=== PATIENT | male | born 1990 | race Caucasian/White ===

== ENCOUNTER 2017-10-15 09:24 | Emergency (ER) | payer OTHER, SELFPAY ==
[2017-10-15 09:25] VITALS: BP 125/66; PULSE 95; RESP 17; TEMP 36.8; O2SAT 97; BMI 17.2
--- NOTE | 2017-10-15 09:35 | RAD_ITS ---
STUDY: X-RAY - LEFT FOOT CLINICAL: Male, 27 years old. Pain following injury. TECHNIQUE: 3 view(s) of the foot. COMPARISON: None. FINDINGS: Normal talus, calcaneus, and tarsal bones. Normal visualized subtalar, talonavicular, calcaneocuboid, tarsal and tarsometatarsal articulations. Slightly displaced oblique fracture of the distal aspect of the fifth metatarsal. Normal metatarsophalangeal joint of the great toe. Normal tibial and fibular sesamoid bones. Normal interphalangeal joint of the great toe. Normal phalanges of the great toe. Normal second through fifth metatarsophalangeal joints. Normal interphalangeal joints and phalanges of the lesser toes. Soft tissue swelling. RAD/Foot min 3 Views IMPRESSION: Mildly displaced oblique fracture of the distal aspect of the fifth metatarsal with overlying soft tissue swelling. Electronically Signed: Federico Carey MD at 9:54 EDT Tel [phone], Service support ,
[2017-10-15] MEDS: Ibuprofen 600 MG Tablet PO (10:00)
--- NOTE | 2017-10-15 10:15 | ED.VISSUMM ---
- ER Visit Summary Date of Service: 10/15/17 Chief Complaint: [Left foot injury] History of Present Illness: The patient is a 27 M [presents the emergency department after sustaining a left foot injury this morning about an hour ago. Patient states that he was coming down the steps when he fell down for 5 steps injuring his left foot. Patient unable to bear weight. He denies any other injuries.] Physical Examination: [HEENT-PERRLA, EOMI. Cranial nerves II through XII grossly intact. TMs clear. Mucous membranes moist. No adenopathy. Cardiovascular-regular rate and rhythm without murmur or ectopy Lungs-clear to auscultation, chest wall stable without crepitus or subcu emphysema Abdomen-normoactive bowel sounds, soft, nontender, no rebound or rigidity, no peritoneal signs. Extremities-intact ?4, normal range of motion, normal pulses. Left foot-patient has some mild ecchymosis and soft tissue swelling over the lateral aspect of the foot. Patient has tenderness over the fifth metatarsal diffusely. No pain at the ankle. Neurovascular intact. Test Results: [X-rays of the left foot obtained showed a fracture of the fifth metatarsal distal third that is oblique.] Emergency Department Course and Treatment: [Patient was given ibuprofen in the emergency department and placed in a walking boot and given crutches] Treatment Plan: [Patient will be given a prescription for 10 Percocet for home and advised to follow-up with Dr. Robert.] Disposition: [Discharged home in stable condition. Patient advised to ice and elevate extremity.] Impression: [Left foot fracture] This note was generated with [employer] dictation software. It may contain incorrect words, spelling, and punctuation that were not noted in review of the chart prior to signing ED Disposition - Plan for ED Patient: Chief Complaint: Lower Extremity Injury Referrals: Wayne Bartlett MD [Primary Care Provider] -
--- NOTE | 2017-10-15 10:18 | ED.DEP ---
ED Disposition - Plan for ED Patient: Chief Complaint: Lower Extremity Injury Instructions: ED Fx Foot Prescriptions: Oxycodone HCl/Acetaminophen [Percocet 5/325] 1 tab PO Q6H PRN PRN 3 Days #10 tab PRN Reason: Pain Referrals: Wanye Bartlett MD [Primary Care Provider] - Paul Robert DPM [STAFF PHYSICIAN] - 3-5 Days
== END 2017-10-15 10:53 | disposition home or self-care (01) ==
PROVIDERS: Emergency Provider Emergency Medicine; Family Provider Family Medicine; PCP Family Medicine
DX: S92.352A Displaced fracture of fifth metatarsal bone, left foot, initial encounter for closed fracture (principal); W10.9XXA Fall (on) (from) unspecified stairs and steps, initial encounter; Y93.01 Activity, walking, marching and hiking; Y92.009 Unspecified place in unspecified non-institutional (private) residence as the place of occurrence of the external cause
CPT/HCPCS: 73630; 99284

== ENCOUNTER → 2017-10-16 12:47 | Outpatient (CLI) | payer OTHER, SELFPAY ==
[2017-10-16 13:58] LABS: Hematocrit 44.8 % (40-54); Hemoglobin 14.6 g/dl (13.0-16.5); Mean Corp Hgb Conc 32.6 g/gl (32-36); Mean Corpuscular Hgb 29.1 pg (27.0-32.0); Mean Corpuscular Volume 89.2 fL (80-94); Platelet Count 223 K/mm3 (150-450); RBC Distribution Width CV 13.2 % (11.6-14.6); RBC Distribution Width SD 42.6 fl (35.1-43.9); Red Blood Count 5.02 M/mm3 (4.6-6.2); White Blood Count 7.6 K/mm3 (4.4-11.0)
[2017-10-16 14:08] LABS: International Normalized Ratio 1.1; Partial Thromboplast Time 28.1 Seconds (24.1-36.2); Prothrombin Time (Protime)PT. 14.3 SECONDS (11.7-14.9)
[2017-10-16 14:09] LABS: AST(SGOT) 18 U/L (15-37); Alanine Aminotransfer ALT/SGPT 29 U/L (16-61); Albumin, Serum 4.2 g/dL (3.2-5.0); Alkaline Phosphatase 79 U/L (45-117); Anion Gap 9 (5-15); BUN 17 mg/dL (7-18); BUN/Creat Ratio 17.1 RATIO (10-20); Calcium,Total 9.3 mg/dL (8.5-10.1); Chloride 103 mmol/L (98-107); EST Glomerular Filtration Rate 96 mL/min (>60); Est Glom Filt Rate - Afr Amer 116 mL/min (>60); Globulin 4.2 g/dL (2.2-4.2); Glucose 63 mg/dL (74-106); Potassium 4.2 mmol/L (3.5-5.1); Protein, Total 8.4 g/dL (6.4-8.2); Sodium Level 142 mmol/L (136-145)
[2017-10-16 14:13] LABS: Scan Indicated on CBC? Y/N NO
== END ==
LOC: MTLAB 12:49
PROVIDERS: Family Provider Family Medicine; PCP Family Medicine; Visit Provider Family Medicine
DX: Z01.818 Encounter for other preprocedural examination (principal)
CPT/HCPCS: 36415; 80053; 85027; 85610; 85730

== ENCOUNTER 2017-10-19 11:34 | Day surgery (SDC) | payer OTHER, SELFPAY ==
[2017-10-19] VITALS (9 sets, daily range): BP systolic 92–125; BP diastolic 53–88; PULSE 47–68; RESP 16; TEMP 36.2–36.9; O2SAT 96–100; BMI 17.9
[2017-10-19 12:43] LABS: Absolute Lymphocyte Count 1.26 X10^3/ul (0.83-4.51); Absolute Neutrophil Count 3.6 X10^3/uL (2.0-7.7); Basophil# 0.01 X10^3/uL; Basophil% 0.2 % (0-1); Eosinophil# 0.09 X10^3/uL; Eosinophils% 1.6 % (0-5); Hematocrit 40.8 % (40-54); Hemoglobin 13.6 g/dl (13.0-16.5); Lymphocyte # 1.26 X10^3/ul (4.0); Lymphocyte % 22.5 % (19-41); Mean Corp Hgb Conc 33.3 g/gl (32-36); Mean Corpuscular Hgb 29.2 pg (27.0-32.0); Mean Corpuscular Volume 87.7 fL (80-94); Mean Platelet Vol. 11.6 fl (6.2-12.0); Monocyte# 0.63 X10^3/uL; Monocyte% 11.2 % (0-10); Neutrophil # 3.62 X10^3/uL (2.7-7.7); Neutrophil % 64.5 % (47-70); Platelet Count 178 K/mm3 (150-450); RBC Distribution Width CV 12.8 % (11.6-14.6); RBC Distribution Width SD 41.2 fl (35.1-43.9); Red Blood Count 4.65 M/mm3 (4.6-6.2); White Blood Count 5.6 K/mm3 (4.4-11.0)
[2017-10-19 12:53] LABS: POSITIVE COUNT NO; POSITIVE DIFFERENTIAL NO; POSITIVE MORPHOLOGY NO
[2017-10-19 13:42] LABS: Vitamin D,25 Hydroxy 29.2 ng/mL (29.95-100.01)
--- NOTE | 2017-10-19 15:00 | RAD_ITS ---
STUDY: X-RAY - LEFT FOOT CLINICAL: Male, 27 years old. Intraoperative control of procedure. Open reduction and internal fixation of fracture of the fifth metatarsal. TECHNIQUE: 5 fluoroscopic view(s) of the foot with 27.3 seconds of fluoroscopy time. COMPARISON: Prior left foot films of October 15, 2017 FINDINGS: Fluoroscopic imaging demonstrates anatomic realignment of the comminuted diaphyseal fracture of the fifth metatarsal with one orthopedic pin and plate and screw hardware. At the completion of the procedure the fifth metatarsal fracture is in anatomic alignment. RAD/Foot min 3 Views IMPRESSION: Anatomic reduction and alignment of the fifth metatarsal fracture with orthopedic pin and plate and screw hardware. Electronically Signed: Donna Copeland MD at 16:32 EDT , Service support ,
[2017-10-19] MEDS: Bupivacaine 0.25% 30 ML Vial (15:50)
--- NOTE | 2017-10-19 16:02 | RAD_ITS ---
STUDY: X-RAY - LEFT FOOT CLINICAL: Male, 27 years old. Post operative evaluation of open reduction and internal fixation of fifth metatarsal fracture. TECHNIQUE: 3 view(s) of the foot. COMPARISON: Prior intraoperative radiographs of October 19, 2017. FINDINGS: Normal talus, calcaneus, and tarsal bones. Normal visualized subtalar, talonavicular, calcaneocuboid, tarsal and tarsometatarsal articulations. Anatomic alignment of the diaphyseal fracture of the fifth metatarsal with one orthopedic pin and the lateral plate and screw hardware. Normal first through the fourth metatarsals. Normal metatarsophalangeal joint of the great toe. Normal tibial and fibular sesamoid bones. Normal interphalangeal joint of the great toe. Normal phalanges of the great toe. Normal second through fifth metatarsophalangeal joints. Normal interphalangeal joints and phalanges of the lesser toes. Normal postoperative soft tissue changes. The foot is stabilized in a neutral position with a dorsal plantar fiberglass splint. RAD/Foot min 3 Views IMPRESSION: Anatomic alignment of the diaphyseal fracture of the fifth metatarsal with orthopedic pin and plate and screw hardware. Foot stabilized in a neutral position and placed in a dorsal/plantar fiberglass splint. Electronically Signed: Donna Copeland MD at 16:34 EDT , Service support ,
--- NOTE | 2017-10-19 16:07 | DCINST_ITS ---
Discharge Diet: No Restrictions Discharge Activity: Use Crutches, - - use splint Weight Bearing Status: No weight bearing Keep extremity elevated above heart level: Left Leg Call your doctor if your incision/area has: Continuous Slow Oozing, Sudden Increased Bleeding, Increased Pain/ Swelling, Increased Redness, Foul Smelling Discharge, Swelling at the incision site Call your doctor if you observe: Fever of 101 or Higher, Coldness, Increased Pain, Numbness or Tingling, Change in Color, Calf discomfort, Uncontrolled pain Cleanse incision/area with: Keep Dressing Clean & Dry Allergies/Adverse Reactions: Allergies amoxicillin Allergy (Verified 10/19/17 12:01) Unknown Medications to take at Discharge Oxycodone HCl/Acetaminophen [Percocet 5/325] 1 tab PO Q6H PRN PRN 3 Days #10 tab 10/15/17 Acetaminophen [Tylenol Extra Strength] 500 mg PO Q4H PRN PRN 10/17/17 Hydrocodone/Acetaminophen [Hydrocodon-Acetaminophen 5-325] 1 - 2 tab PO Q6H PRN PRN #30 tab 10/19/17 The following prescriptions were given: Hydrocodone/Acetaminophen [Hydrocodon-Acetaminophen 5-325] 1 - 2 tab PO Q6H PRN PRN #30 tab PRN Reason: Pain Primary Care Physician: Wayne Bartlett MD [Primary Care Provider] - Test Results: Test results from this visit will be discussed in further detail at your follow- up appointment, if applicable. Please Follow Up With: Sachi Elise DPM When: 1 week at [facility]; [phone] Proposed Discharge Date: 10/19/17
--- NOTE | 2017-10-19 16:19 | OP.PN_ITS ---
Problem List (1) Displaced fracture of fifth metatarsal bone, left foot, subsequent encounter for fracture with delayed healing Status: Acute (2) Left foot pain Status: Acute Immediate Post-Op Note Date of Procedure: 10/19/17 - surgeon: Sachi Elise DPM [facility] Nurse: Tim Diallo PGY2 Primary Surgeon/Physician: Sachi lEise DPM window/distribution clerk: none Pre-Operative Diagnosis: fifth metatarsal fracture left foot Post-Operative Diagnosis: fifth metatarsal fracture left foot Surgery/Procedure Performed:: open reduction internal fixation of left fifth metatarsal fracture Description of Surgical Findings:: hemostasis controlled solid fracture reduction maintained see detailed operative report The patient tolerated the procedure and anesthesia well. He was transported to the PACU with vitals stable and vascular status intact to the left lower extremity. Post operative orders were entered electronically. He will be discharged home today. Estimated Blood Loss: <50 mL Specimen's removed: none Type of Anesthesia:: Local MAC - preoperative injection: 10 cc 0.25% marcaine plain post operative injection: 10 cc of 1:1 mix of 0.25 % marcaine plain and 1 % lidocaine plain - Admit VTE Documentation VTE Present on Admission: No VTE Mechan Device Prophylaxis: SCD's VTE Pharm Prophylaxis ordered?: No Reason prophylaxis not ordered:: Refusal of Tx by Patient, Treatment Not Indicated
--- NOTE | 2017-10-19 16:45 | PCM.OPRPT ---
Problem List (1) Displaced fracture of fifth metatarsal bone, left foot, subsequent encounter for fracture with delayed healing Status: Acute (2) Left foot pain Status: Acute Report of Operation Date of Procedure: 10/19/17 - surgeon: Sachi Elise DPM Md Allergy Immunology: Tim Diallo PGY2 Pre-Operative Diagnosis: fifth metatarsal fracture left foot Post-Operative Diagnosis: fifth metatarsal fracture left foot Surgery/Procedure Performed:: open reduction internal fixation of left fifth metatarsal fracture Description of Surgical Findings:: hemostasis: well padded pneumatic ankle tourniquet left, 250 mmHg materials: one 0.45 k wire, one arthrex low profile T- plate (6 hole), two 12 mm and one 10 mm 2.4 mm variable angle titanium locking screws, one 12 mm and one 14 mm cortical 2.4 mm low profile titanium screw, demineralized bone matrix (~ 1/2 cc) complications: none pointer machine operator: none Type of Anesthesia:: Local MAC - preoperative injection: 10 cc 0.25% marcaine plain post operative injection: 10 cc of 1:1 mix of 0.25 % marcaine plain and 1% lidocaine plain Specimen's removed: none Estimated Blood Loss (mL): <50 mL Description of Procedure: Indications: This 27-year-old male with no significant past medical history fell down four stairs on October 15, 2017 in which she sustained a displaced fifth metatarsal fracture of the left foot. He has pain, swelling, and bruising. He was referred by the emergency room without other loss of consciousness or other injuries. His x-rays were reviewed with a comminuted distal diaphysis spiral oblique fracture of the left fifth metatarsal with shortening and displacement of over 50% in the transverse plane. He is very active at home and at work. Clinically has pain on palpation of the fracture site and no other suspected injuries. His neurovascular status is intact. The preoperative indications, planned procedure, possible benefits, risks, consultations, and anticipated healing time and management were discussed in detail the patient. He understands and elects to proceed with surgery at this time. He understands complications and risks include but are not limited to the following: Infection, scarring, pain, swelling, complex regional pain syndrome, blood clot, loss of limb, function, life, hardware failure, over or under correction, need for revisional surgery, delayed or nonhealing of the skin or bone. The informed surgical consent and the limb were signed. I answered all his questions to his satisfaction. He was cleared medically by his primary care physician and I reviewed his preoperative diagnostic labs including CBC, CMP, and coagulation studies. Procedure in detail: The patient was transferred to the operating room via cart and placed on the operating table. Final verification the patient, surgery, limb designation was performed via the timeout procedure. A well-padded pneumatic left ankle tourniquet was placed. The preoperative injection was administered via the podiatry team. Preoperative IV clindamycin was administered and MAC anesthesia was initiated by the anesthesia team. The left lower extremity was prepped and draped in the usual aseptic manner. An Esmarch bandage was used to exsanguinate the left lower extremity and the tourniquet was inflated at this time. Attention was first directed to the dorsal lateral aspect of the left foot in which a 4 cm linear incision was made through the skin over the distal diaphyseal fracture site. Care was taken to identify, protect, and retract all neurovascular structures at this point and throughout the remainder of the surgery. Blunt dissection was performed down to the capsular layer in which a gentle linear incision was made. The fracture hematoma was immediately identified. This fracture hematoma was irrigated with saline and mobilized and gently brought out to length. It is noted this is severely comminuted and the bone is soft in this area. Periosteal invagination was reflected from the fracture site to allow fracture reapproximation, and care was taken to keep the periosteum intact to the remainder of this bone. A low-profile Arthrex T plate was secured to the fifth metatarsal head and this was used to pull this fragment out to length and rotated back into an anatomic position. The proximal part of the plate was next temporarily fixated and proper placement and reduction of the fracture was confirmed with intraoperative fluoroscopy. Next, cortical locking and nonlocking screws were applied to the plate to secure it as one solid unit. An additional K wire was used to reapproximate the butterfly loose fragment on the medial aspect of the fifth metatarsal diaphysis to prevent rotation and movement. This was applied perpendicular to the fracture line. Demineralized bone matrix was applied to this comminuted site. Intraoperative x-rays were taken in multiple views to confirm appropriate fracture reduction and placement of the plate and screws. The desired trajectory and length of screws and retraction was confirmed. Saline irrigation was performed. Deep tissue was reapproximated with 2-0 Vicryl. The tourniquet was deflated at this time and brisk capillary refill time was noted to all digits of the left foot. There is no pulsatile bleeding. Pressure was applied a minimal electrocauterization was used to maintain hemostasis. Subcutaneous closure was achieved with minimal Vicryl and the skin was reapproximated with 4-0 nylon utilizing horizontal mattress technique. The postoperative injection was administered. A dressing consisting of Betadine soaked Adaptic, gauze, Kerlix and Dalton wrap was applied. Additionally, a well-padded posterior mold was applied with the foot and ankle in a rectus position. After procedure: The patient tolerated the procedure and anesthesia well. He was transported to the PACU vital signs stable and vascular status intact to left lower extremity. He was advised to ice and elevate for pain and inflammation management. Formal postoperative x-rays were ordered in the PACU. He was advised to continue with strict nonweightbearing with crutches for assistance with the splint in place to the left lower extremity. A postoperative pain medicine prescription was provided and he was advised on safe and proper use of [place] only if needed for pain. He was advised to keep his dressing and splint clean, dry, and intact until [facility] Elise. He was advised to call sooner if he has any questions or concerns. I also recommend he take vitamin D supplementation due to his lower level to optimize bone healing. All of his postoperative orders were entered electronically and he will be discharged home today.
--- NOTE | 2017-10-19 16:48 | OP.PCM_ITS ---
Problem List (1) Displaced fracture of fifth metatarsal bone, left foot, subsequent encounter for fracture with delayed healing Status: Acute (2) Left foot pain Status: Acute Report of Operation Date of Procedure: 10/19/17 - surgeon: Sachi Elise DPM Head Field Hockey Coach: Tim Diallo PGY2 Pre-Operative Diagnosis: fifth metatarsal fracture left foot Post-Operative Diagnosis: fifth metatarsal fracture left foot Surgery/Procedure Performed:: open reduction internal fixation of left fifth metatarsal fracture Description of Surgical Findings:: hemostasis: well padded pneumatic ankle tourniquet left, 250 mmHg materials: one 0.45 k wire, one arthrex low profile T- plate (6 hole), two 12 mm and one 10 mm 2.4 mm variable angle titanium locking screws, one 12 mm and one 14 mm cortical 2.4 mm low profile titanium screw, demineralized bone matrix (~ 1/2 cc) complications: none assistant speech language pathologist: none Type of Anesthesia:: Local MAC - preoperative injection: 10 cc 0.25% marcaine plain post operative injection: 10 cc of 1:1 mix of 0.25 % marcaine plain and 1 % lidocaine plain Specimen's removed: none Estimated Blood Loss (mL): <50 mL Description of Procedure: Indications: This 27-year-old male with no significant past medical history fell down four stairs on October 15, 2017 in which she sustained a displaced fifth metatarsal fracture of the left foot. He has pain, swelling, and bruising. He was referred by the emergency room without other loss of consciousness or other injuries. His x-rays were reviewed with a comminuted distal diaphysis spiral oblique fracture of the left fifth metatarsal with shortening and displacement of over 50% in the transverse plane. He is very active at home and at work. Clinically has pain on palpation of the fracture site and no other suspected injuries. His neurovascular status is intact. The preoperative indications, planned procedure, possible benefits, risks, consultations, and anticipated healing time and management were discussed in detail the patient. He understands and elects to proceed with surgery at this time. He understands complications and risks include but are not limited to the following: Infection , scarring, pain, swelling, complex regional pain syndrome, blood clot, loss of limb, function, life, hardware failure, over or under correction, need for revisional surgery, delayed or nonhealing of the skin or bone. The informed surgical consent and the limb were signed. I answered all his questions to his satisfaction. He was cleared medically by his primary care physician and I reviewed his preoperative diagnostic labs including CBC, CMP, and coagulation studies. Procedure in detail: The patient was transferred to the operating room via cart and placed on the operating table. Final verification the patient, surgery, limb designation was performed via the timeout procedure. A well-padded pneumatic left ankle tourniquet was placed. The preoperative injection was administered via the podiatry team. Preoperative IV clindamycin was administered and MAC anesthesia was initiated by the anesthesia team. The left lower extremity was prepped and draped in the usual aseptic manner. An Esmarch bandage was used to exsanguinate the left lower extremity and the tourniquet was inflated at this time. Attention was first directed to the dorsal lateral aspect of the left foot in which a 4 cm linear incision was made through the skin over the distal diaphyseal fracture site. Care was taken to identify, protect, and retract all neurovascular structures at this point and throughout the remainder of the surgery. Blunt dissection was performed down to the capsular layer in which a gentle linear incision was made. The fracture hematoma was immediately identified. This fracture hematoma was irrigated with saline and mobilized and gently brought out to length. It is noted this is severely comminuted and the bone is soft in this area. Periosteal invagination was reflected from the fracture site to allow fracture reapproximation, and care was taken to keep the periosteum intact to the remainder of this bone. A low-profile Arthrex T plate was secured to the fifth metatarsal head and this was used to pull this fragment out to length and rotated back into an anatomic position. The proximal part of the plate was next temporarily fixated and proper placement and reduction of the fracture was confirmed with intraoperative fluoroscopy. Next, cortical locking and nonlocking screws were applied to the plate to secure it as one solid unit. An additional K wire was used to reapproximate the butterfly loose fragment on the medial aspect of the fifth metatarsal diaphysis to prevent rotation and movement. This was applied perpendicular to the fracture line. Demineralized bone matrix was applied to this comminuted site. Intraoperative x-rays were taken in multiple views to confirm appropriate fracture reduction and placement of the plate and screws. The desired trajectory and length of screws and retraction was confirmed. Saline irrigation was performed. Deep tissue was reapproximated with 2-0 Vicryl. The tourniquet was deflated at this time and brisk capillary refill time was noted to all digits of the left foot. There is no pulsatile bleeding. Pressure was applied a minimal electrocauterization was used to maintain hemostasis. Subcutaneous closure was achieved with minimal Vicryl and the skin was reapproximated with 4-0 nylon utilizing horizontal mattress technique. The postoperative injection was administered. A dressing consisting of Betadine soaked Adaptic, gauze, Kerlix and Dalton wrap was applied. Additionally, a well- padded posterior mold was applied with the foot and ankle in a rectus position. After procedure: The patient tolerated the procedure and anesthesia well. He was transported to the PACU vital signs stable and vascular status intact to left lower extremity. He was advised to ice and elevate for pain and inflammation management. Formal postoperative x-rays were ordered in the PACU. He was advised to continue with strict nonweightbearing with crutches for assistance with the splint in place to the left lower extremity. A postoperative pain medicine prescription was provided and he was advised on safe and proper use of [place] only if needed for pain. He was advised to keep his dressing and splint clean, dry, and intact until [facility] with [facility] Elise. He was advised to call sooner if he has any questions or concerns. I also recommend he take vitamin D supplementation due to his lower level to optimize bone healing. All of his postoperative orders were entered electronically and he will be discharged home today.
== END 2017-10-19 18:00 | disposition home or self-care (01) ==
LOC: SDC 11:36 → AC 11:36
PROVIDERS: Family Provider Family Medicine; PCP Family Medicine; Visit Provider Podiatrist
PROC: (CPT 28485; principal; 2017-10-19 12:45)
DX: S92.352A Displaced fracture of fifth metatarsal bone, left foot, initial encounter for closed fracture (principal); W10.9XXA Fall (on) (from) unspecified stairs and steps, initial encounter; Y93.9 Activity, unspecified; Y92.9 Unspecified place or not applicable; Z87.891 Personal history of nicotine dependence
CPT/HCPCS: 28485; 73630; 76000; 82306; 85025; C1713; J7120; J2405